=== PATIENT | female | born 1985 | race Caucasian/White ===

== ENCOUNTER 2017-01-23 18:01 | Emergency (ER) | payer MEDICAID, OTHER ==
[2017-01-23 18:07] VITALS: BP 124/80; PULSE 89; RESP 18; TEMP 98.4; O2SAT 100
--- NOTE | 2017-01-23 18:30 | C.PDOC ---
History Of Present Illness 31 y/o female c/o itchiness between 2nd and 3rd toe on left foot, with whitish colored skin, feels hard beneath toes, and warmth on top of foot x 1 day no injury, no new shoes. pt denies any fever or chills. Time Seen by Provider: 01/23/17 18:23 Chief Complaint (Nursing): Lower Extremity Problem/Injury History Per: Patient History/Exam Limitations: no limitations Onset/Duration Of Symptoms: Days (1) Current Symptoms Are (Timing): Worse Severity: Moderate Past Medical History Reviewed: Historical Data, Nursing Documentation, Vital Signs Vital Signs: Last Vital Signs Temp 98.4 F 01/23/17 18:04 Pulse 89 01/23/17 18:04 Resp 18 01/23/17 18:04 BP 124/80 01/23/17 18:04 Pulse Ox 100 01/28/17 06:53 - Medical History PMH: Hypothyroidism Family History: States: Unknown Family Hx - Social History Hx Tobacco Use: No Hx Alcohol Use: No Hx Substance Use: No - Immunization History Hx Tetanus Toxoid Vaccination: Yes Hx Influenza Vaccination: Yes Hx Pneumococcal Vaccination: Yes Review Of Systems Constitutional: Negative for: Fever, Chills Musculoskeletal: Positive for: Foot Pain (left) Skin: Positive for: Other (moist between 2/3 toes) Neurological: Negative for: Weakness, Numbness Physical Exam - Physical Exam Appears: Non-toxic, No Acute Distress Skin: Warm, Dry, Other (moist whitish skin between 2nd and third toes on left foot with some macerated skin, v shaped erythema to dorsum of foot proximal to 2 /3 toes with mild tenderness and swelling) Extremity: No Calf Tenderness, Capillary Refill (less than 2 sec), Other (see skin) Pulses: Left Dorsalis Pedis: Normal Neurological/Psych: Oriented x3, Normal Speech, Normal Cognition ED Course And Treatment O2 Sat by Pulse Oximetry: 100 Medical Decision Making Medical Decision Making: pt with tinea pedis between 2nd and third toes left foot with mild cellulitis to dorsum of foot; will d/c with antibiotics, antifungal and podiatry follow up. Disposition Counseled Patient/Family Regarding: Diagnosis, Need For Followup, Rx Given - Disposition Referrals: Podiatry Clinic [Outside] Disposition: HOME/ ROUTINE Disposition Time: 18:31 Condition: STABLE Additional Instructions: Apply cream between toes twice a day. Take antibiotics as prescribed. Follow up in Podiatry clinic, call tomorrow for an appointment. Take Tylenol or Motrin for pain if needed. Benadryl for itch per directions on bottle. Return to ER if redness spreads beyond line drawn on foot. Prescriptions: Cephalexin [cephalexin] 500 mg PO QID #28 cap Clotrimazole 1% Cream [Lotrimin 1%] 1 applic TP BID #1 tube Instructions: Tinea Pedis (ED), Cellulitis (ED) Forms: [employer] (Persian), General Discharge Instructions - Clinical Impression Clinical Impression: Cellulitis of foot, left, Tinea pedis of left foot
== END 2017-01-23 19:08 | disposition home or self-care (01) ==
LOC: C.ER 18:01
DX: L03.116 Cellulitis of left lower limb (principal); B35.3 Tinea pedis